=== PATIENT | female | born 1965 | race Caucasian/White ===

== ENCOUNTER 2017-10-21 06:44 | Day surgery (SDC) | payer BC, OTHER ==
[2017-10-21] MEDS ORDERED: Sodium Chloride 0.9% 10 ML Syringe FLUSH PRN (06:45)
[2017-10-21] MEDS ORDERED: Lactated Ringers 1,000 ML IV SCH (06:45)
[2017-10-21] MEDS ORDERED: Midazolam 1 MG/ML 2 ML SDV IV ONE (08:00)
[2017-10-21] MEDS ORDERED: Propofol 200 MG/20 ML SDV IV ONE (08:00)
--- NOTE | 2017-10-21 08:27 | PCM.OPNOTE ---
- General Post-Op/Procedure Note Date of Surgery/Procedure: 10/21/17 Operative Procedure(s): c scope Findings: internal hemorrhoids Pre Op Diagnosis: +FIT Post-Op Diagnosis: Internal hemorrhoids Anesthesia Technique: MAC Primary Surgeon: Fady Wilkinson Anesthesia Provider: Amber Buchanan Pathology: none Complications: None Condition: Good Free Text/Narrative:: see dictation
--- NOTE | 2017-10-21 08:40 | OR ---
DATE OF OPERATION: 10/21/2017 SURGEON: Fady Wilkinson MD PROCEDURE PERFORMED: Colonoscopy. PREOPERATIVE DIAGNOSIS: Positive fit exam. POSTOPERATIVE DIAGNOSIS: Internal hemorrhoids. INDICATIONS FOR PROCEDURE: This is a 51-year-old white female who presents with the above-mentioned laboratory abnormality. She has never had a colonoscopy. She was offered and accepted the same. DESCRIPTION OF OPERATION: After an excellent IV sedation was administered, digital rectal exam was performed. No marked abnormality was noted. Flexible colonoscope was inserted and advanced to the cecum without difficulty. The prep was excellent. The following findings were noted. Ascending colon, unremarkable. Transverse colon, unremarkable. Descending colon, unremarkable. Sigmoid and rectum unremarkable. On retroflexion of the scope, there was some internal hemorrhoidal tissue which is a probable cause of her positive exam. The colon was deflated as the scope was removed. The patient tolerated the procedure well. /[id number] PRASHANTH/MADDI
== END 2017-10-21 09:39 | disposition home or self-care (01) ==
LOC: FB.SDS 06:44
PROVIDERS: ATTEND Surgery
DX: K64.8 Other hemorrhoids (principal); F43.23 Adjustment disorder with mixed anxiety and depressed mood; Z79.899 Other long term (current) drug therapy; Z98.84 Bariatric surgery status; Z87.891 Personal history of nicotine dependence; Z98.890 Other specified postprocedural states
CPT/HCPCS: 45378; 81025; J2250; J2704; J7120

== ENCOUNTER 2017-11-13 22:36 | Emergency (ER) | payer OTHER, BC ==
--- NOTE | 2017-11-13 22:51 | EDM.PDOC ---
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 No other acute injuries, no N/V/D or dizziness, no other trauma. BP 117/59 Pulse 75 Temp 36.7 o2 say 98% on RA Onset Date: 11/13/17 Onset Time: 21:00 Duration: Intermittent Location: Reports: Back Quality: Reports: Ache, Burning, Dull Severity: Mild Improves with: Reports: Rest Worsens with: Reports: Movement Context: Reports: Trauma (fellon back at work) Associated Symptoms: Reports: No Other Symptoms mid back Pain Score (Numeric/FACES): 4 - Related Data Allergies Allergy/AdvReac Type Severity Reaction Status Date / Time No Known Allergies Allergy Verified 11/13/17 23:13 Home Meds: Home Meds Ascorbate Calcium [Vitamin C] 500 mg PO DAILY 10/20/17 [History] Calcium Carbonate/Vitamin D3 [Calcium Carbonate/Vitamin D 1250 MG-200 Unit] 1 tab PO DAILY 10/20/17 [History] Cholecalciferol (Vitamin D3) [Vitamin D3] 1,000 unit PO DAILY 10/20/17 [History] Cyanocobalamin (Vitamin B-12) [Vitamin B-12] 1,000 mcg PO DAILY 10/20/17 [ History] Ferrous Sulfate 325 mg PO DAILY 10/20/17 [History] Multivitamin with Minerals [Multiple Vitamin] 1 tab PO DAILY 10/20/17 [History] Oxybutynin 5 mg PO BID 10/20/17 [History] Past Medical History HEENT History: Reports: Impaired Vision Cardiovascular History: Reports: None Respiratory History: Reports: None Gastrointestinal History: Reports: None Genitourinary History: Reports: Other (See Below) Other Genitourinary History: OAV (OVERACTIVE BLADDER) X [employer]IAN History: Reports: Other (See Below) Other OB/BYN History: MENORRHAGIA; LEIOMYOMA OF UTERUS Musculoskeletal History: Reports: None Neurological History: Reports: None Psychiatric History: Reports: Anxiety, Depression Endocrine/Metabolic History: Reports: Obesity/BMI 30+ Hematologic History: Reports: Iron Deficiency Immunologic History: Reports: None Oncologic (Cancer) History: Reports: None Dermatologic History: Reports: None - Past Surgical History Head Surgeries/Procedures: Reports: None GI Surgical History: Reports: Bariatric Procedure, Cholecystectomy Female Surgical History: Reports: Breast Biopsy, Section Social & Family History - Tobacco Use Smoking Status *Q: Never Smoker - Caffeine Use Caffeine Use: Reports: Coffee - Recreational Drug Use Recreational Drug Use: No Drug Use in Last 12 Months: No Review of Systems - Review of Systems Review Of Systems: See Below Constitutional: Reports: No Symptoms Eyes: Reports: No Symptoms Ears: Reports: No Symptoms Nose: Reports: No Symptoms Mouth/Throat: Reports: No Symptoms Respiratory: Reports: No Symptoms Cardiovascular: Reports: No Symptoms GI/Abdominal: Reports: No Symptoms Genitourinary: Reports: No Symptoms Musculoskeletal: Reports: Back Pain Skin: Reports: Wound (abrasions) Neurological: Reports: No Symptoms Psychiatric: Reports: No Symptoms ED EXAM, GENERAL - Physical Exam Exam: See Below Exam Limited By: No Limitations General Appearance: Alert, WD/WN, No Apparent Distress, Mild Distress (refused pain meds) Eye Exam: Bilateral Eye: Normal Inspection Ears: Normal External Exam Ear Exam: Bilateral Ear: Auricle Normal Nose: Normal Inspection, Normal Mucosa Throat/Mouth: Normal Inspection, Normal Lips, Normal Teeth Head: Atraumatic, Normocephalic Neck: Normal Inspection, Supple, Non-Tender Respiratory/Chest: No Respiratory Distress, Lungs Clear, Normal Breath Sounds Cardiovascular: Normal Peripheral Pulses, Regular Rate, Rhythm, No Edema Peripheral Pulses: 1+: Brachial (R) GI/Abdominal: Normal Bowel Sounds, Soft, Non-Tender, No Organomegaly (Female) Exam: Deferred Rectal (Female) Exam: Deferred Back Exam: Decreased Range of Motion, Muscle Spasm, Paraspinal Tenderness, Vertebral Tenderness Extremities: Normal Inspection, Normal Range of Motion Neurological: Alert, Oriented, CN II-XII Intact, Normal Cognition, Normal Gait Psychiatric: Normal Affect, Normal Mood Skin Exam: Warm, Dry, Intact, Normal Color, Wound/Incision (abrasions at mid upper back) Lymphatic: No Adenopathy Course - Vital Signs Text/Narrative:: 52 y.o.w.f in prev healthy condition came to the 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 No other acute injuries, no N/V/D or dizziness, no other trauma. BP 117/59 Pulse 75 Temp 36.7 o2 say 98% on RA PE: Tender and edematous mid back T5-L2 level. Minor abrastion. Imaging: CT T and L spine: NAD Impression: Back sprain with abrasion Tx; ICE. Pt refused pain meds, Reexam: Improved, pt refused sick leave. Plan: D/C with instructions Last Recorded V/S: Last Vital Signs Temp 36.9 C 11/14/17 00:12 Pulse 77 11/14/17 00:12 Resp 17 11/14/17 00:12 BP 118/66 11/14/17 00:12 Pulse Ox 99 11/14/17 00:12 - Orders/Labs/Meds Orders: Active Orders 24 hr Category Date Time Status Cooling Warming Measures [RC] ASDIRECTED Care 11/13/17 22:44 Active Lumbar Spine wo Cont [CT] Stat Exams 11/13/17 22:42 Taken Thoracic Spine wo Cont [CT] Stat Exams 11/13/17 22:42 Taken Ice Bag [Ice Therapy] [OM.PC] Routine Oth 11/13/17 22:44 Ordered Departure - Departure Time of Disposition: 00:11 Disposition: Home, Self-Care 01 Condition: Good Clinical Impression: Abrasion of back Thoracic back sprain Qualifiers: Encounter type: initial encounter Qualified Code(s): S23.9XXA - Sprain of unspecified parts of thorax, initial encounter - Discharge Information Instructions: Back Pain, Adult, Back Exercises Referrals: Ned Guerrero MD [Primary Care Provider] - Forms: ED Department Discharge Additional Instructions: Please apply ICE to mid back, Neosporine ointment to abrasions on back, Motrin for pain, please f/u, come back if your symptoms get worse acutely - My Orders Last 24 Hours: My Active Orders 11/13/17 22:42 Lumbar Spine wo Cont [CT] Stat Thoracic Spine wo Cont [CT] Stat 11/13/17 22:44 Cooling Warming Measures [RC] ASDIRECTED Ice Bag [Ice Therapy] [OM.PC] Routine - Assessment/Plan Last 24 Hours: My Active Orders 11/13/17 22:42 Lumbar Spine wo Cont [CT] Stat Thoracic Spine wo Cont [CT] Stat 11/13/17 22:44 Cooling Warming Measures [RC] ASDIRECTED Ice Bag [Ice Therapy] [OM.PC] Routine
== END 2017-11-14 00:15 | disposition home or self-care (01) ==
LOC: FB.ED 22:36
DX: S23.9XXA Sprain of unspecified parts of thorax, initial encounter (principal); S20.419A Abrasion of unspecified back wall of thorax, initial encounter; F32.9 Major depressive disorder, single episode, unspecified; W00.0XXA Fall on same level due to ice and snow, initial encounter; Y93.89 Activity, other specified; Y99.0 Civilian activity done for income or pay
CPT/HCPCS: 72128; 72131; 99283